=== PATIENT | male | born 2000 | race Two or more races ===

== ENCOUNTER 2018-05-05 23:35 | Emergency (ER) | payer OTHER | END 2018-05-06 00:52 | disposition home or self-care (01) | LOC: M ED 23:35 | DX: G89.29 Other chronic pain (principal); M25.572 Pain in left ankle and joints of left foot | CPT/HCPCS: 73590 ==

== ENCOUNTER 2018-05-30 19:06 | Emergency (ER) | payer OTHER | END 2018-05-30 20:10 | disposition home or self-care (01) | LOC: M ED 19:06 | DX: T33.832A Superficial frostbite of left toe(s), initial encounter (principal); X58.XXXA Exposure to other specified factors, initial encounter; Y92.89 Other specified places as the place of occurrence of the external cause | CPT/HCPCS: 99282 ==

== ENCOUNTER 2019-01-08 21:52 | Emergency (ER) | payer OTHER ==
[~2019-01-08] VITALS: Ht 182.9 cm; Wt 93.2 kg
[~2019-01-08 21:52] MED LIST: ACET-716 PO; NAPR-885 PO
[2019-01-08 22:47] LABS: HEMATOCRIT 41.3 % (42.0-52.0); HEMOGLOBIN 13.9 g/dl (13.5-17.5); MEAN CORPUSCULAR HEMOGLOBIN 29.3 pg (27.0-33.0); MEAN CORPUSCULAR HGB CONC 33.7 g/dl (32.0-36.5); MEAN CORPUSCULAR VOLUME 86.9 fl (80.0-96.0); PLATELET COUNT, AUTOMATED 222 10^3/uL (150-450); RED BLOOD COUNT 4.75 10^6/uL (4.30-6.10); WHITE BLOOD COUNT 7.7 10^3/uL (4.0-10.0)
[2019-01-08 22:59] LABS: AMPHETAMINES LEVEL URINE NEGATIVE (NEGATIVE); BARBITURATES URINE NEGATIVE (NEGATIVE); BENZODIAZEPINES URINE NEGATIVE (NEGATIVE); CANNABINOIDS URINE NEGATIVE (NEGATIVE); COCAINE METABOLITE URINE NEGATIVE (NEGATIVE); METHADONE URINE NEGATIVE (NEGATIVE); OPIATES URINE NEGATIVE (NEGATIVE); PHENCYCLIDINE URINE NEGATIVE (NEGATIVE)
[2019-01-08 23:20] LABS: ACETAMINOPHEN LEVEL < 2.0 UG/ML (10.0-30.0); ALBUMIN 3.7 GM/DL (3.2-5.2); ALT/SGPT 11 U/L (12-78); BILIRUBIN,DIRECT < 0.1 MG/DL (0.0-0.2); BILIRUBIN,TOTAL 0.5 MG/DL (0.2-1.0); BLOOD UREA NITROGEN 11 MG/DL (7-18); CALCIUM LEVEL 8.5 MG/DL (8.5-10.1); CARBON DIOXIDE LEVEL 22 MEQ/L (21-32); CHLORIDE LEVEL 109 MEQ/L (98-107); CREATININE FOR GFR 1.02 MG/DL (0.70-1.30); ETHYL ALCOHOL (ETHANOL) < 0.003 % (0.000-0.010); GLUCOSE, FASTING 91 MG/DL (70-100); POTASSIUM SERUM 4.3 MEQ/L (3.5-5.1); SALICYLATE LEVEL < 1.7 MG/DL (5.0-30.0); SODIUM LEVEL 139 MEQ/L (136-145); TOTAL PROTEIN 7.1 GM/DL (6.4-8.2)
[2019-01-08] MEDS ORDERED: TRAZ-252 PO (23:22)
[2019-01-08] MEDS ORDERED: SERT-141 PO (23:22)
[2019-01-09 11:17] VITALS: BP 103/62
--- NOTE | 2019-01-09 21:20 | ECGEPIP ---
[facility] - ED Test Date: 2019-01-08 Pat Name: REESE KOCH Department: Room: - Gender: Male [employer]: [facility] : 2000 Requested By: RYAN HIGGINS Order Number: [id number] Reading MD: Iva Guerrero Measurements Intervals [place] Rate: 55 P: 17 NV: 168 QRS: 37 QRSD: 94 T: 24 QT: 418 QTc: 402 Interpretive Statements SINUS BRADYCARDIA NO PRIOR Electronically Signed on 01-09-2019 21:20:04 EDT by Iva Guerrero
== END 2019-01-09 11:20 ==
LOC: M ED 21:52
DX: R45.851 Suicidal ideations (principal); F33.9 Major depressive disorder, recurrent, unspecified; Z79.899 Other long term (current) drug therapy
CPT/HCPCS: 36415; 80048; 80076; 80307; 84443; 85027; 93005; 99284; G0480

== ENCOUNTER 2019-02-27 20:05 | Emergency (ER) | payer OTHER ==
[~2019-02-27] VITALS: Ht 182.9 cm; Wt 95.5 kg
[~2019-02-27 20:05] MED LIST changes: +SERT-141 PO; +TRAZ-252 PO
[2019-02-27] MEDS ORDERED: KETOROLAC TROMETHAMINE 10 MG TAB PO ONE (22:15)
[2019-02-27] MEDS ORDERED: BACLOFEN 10 MG TAB PO ONE (22:15)
[2019-02-27] MEDS ORDERED: NORCO, ANEXSIA 5/325MG TABLET (HYDROcodone/ACETAMINOPHEN) PO ONE (23:30)
[2019-02-28] MEDS ORDERED: LIDOCAINE 5% (LIDODERM) PATCH TD ONE (00:45)
[2019-02-28] MEDS ORDERED: diazePAM 5 MG TAB PO ONE (00:45)
[2019-02-28] MEDS ORDERED: KETO10TAB PO (01:44)
[2019-02-28] MEDS ORDERED: CYCL5TAB PO (01:44)
[2019-02-28 01:52] VITALS: BP 118/65
[2019-02-28] MEDS ORDERED: **NOTE PATIENT COMMENT** MISC XX ONE (12:45)
== END 2019-02-28 01:54 | disposition home or self-care (01) ==
LOC: M ED 20:05
DX: M62.830 Muscle spasm of back (principal)